=== PATIENT | female | born 1965 | race Caucasian/White ===

== ENCOUNTER 2017-03-02 17:35 | Emergency (ER) | payer OTHER ==
[~2017-03-02] VITALS: Ht 165.1 cm; Wt 77.1 kg
[2017-03-02] MEDS ORDERED: EZET1TAB PO (17:51)
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
--- NOTE | 2017-03-02 20:48 | RADIOLOGY IMAGING REPORT ---
FACILITY: [facility] [place] PATIENT NAME: Leila Gabriel : 1965 MR: [id number] V: [id number] EXAM DATE: ORDERING PHYSICIAN: PAULETTE GOMEZ TECHNOLOGIST: Location: [facility] [place] Patient: Leila Gabriel : 1965 Visit/Account:[id number] Date of Sevice: 03/02/2017 THYROID HISTORY: Thyroid nodule seen on CT scan. COMPARISON: Cervical spine CT dated 03/02/2017. FINDINGS: SIZE: Normal. Right lobe: 4.4 x 1.5 x 1.3 cm Left lobe: 6.3 x 1.5 x 1.3 cm Isthmus: 3 mm Thyroid heterogeneity: Homogeneous. NODULES: Right lobe: * No suspicious nodules. Left lobe: * 3.2 x 3.3 x 3.2 cm heterogeneously hypoechoic and hyperechoic and slightly vascular nodule extendi ng inferiorly from the left thyroid lobe. Isthmus: * None discrete. VASCULARITY: Within normal limits. ADDITIONAL FINDINGS: None. IMPRESSION: 3.2 x 3.3 x 3.2 cm left inferior thyroid nodule. Biopsy is recommended. REFERENCE: 2015 [place] [employer] Management Guidelines for Adult Patients with Thyroid Nodules and D ifferentiated Thyroid Cancer: The [place] [employer] Guidelines Task Force on Thyroid Nodul es and Differentiated Thyroid Cancer. SONOGRAPHIC PATTERNS: * Benign: Purely cystic nodules (no solid component); estimated risk of malignancy <1 percent; no bi opsy recommended. * Very Low Suspicion: Spongiform or partially cystic nodules without any of the sonographic features described in low, intermediate, or high suspicion patterns; estimated risk of malignancy <3 percent; consider FNA at > 2 cm (Observation without FNA is also a reasonable option). * Low Suspicion: Isoechoic or hyperechoic solid nodule, or partially cystic nodule with eccentric so lid areas, without microcalcification, irregular margin or ETE (extra-thyroidal extension), or taller than wide shape; estimated risk of malignancy 5-10 percent; recommend FNA at >1.5 cm. * Intermediate Suspicion: Hypoechoic solid nodule with smooth margins without microcalcifications, E TE (extra-thyroidal extension), or taller than wide shape; estimated risk of malignancy 10-20 percent ; recommend FNA at > 1 cm. * High Suspicion: Solid hypoechoic nodule or solid hypoechoic component of a partially cystic nodule with one or more of the following features: irregular margins (infiltrative, microlobulated), microc alcifications, taller than wide shape, rim calcifications with small extrusive soft tissue component, evidence of ETE (extra-thyroidal extension); estimated risk of malignancy >70-90 percent; recommend FNA at > 1 cm. NOTES: * Although a sonographically suspicious subcentimeter thyroid nodule without evidence of extrathyroi clary extension or sonographically suspicious lymph nodes may be observed with close sonographic follow -up rather than pursuing immediate FNA, patient age and preference may modify decision-making. * A > 50% interval increase in nodule volume and/or development of new suspicious sonographic featur es are felt to be a valid reasons for potential re-aspiration of a nodule previously shown to have be nign FNA cytology. Report Dictated By: Juan Fam MD at 03/02/2017 8:39 PM Report E-Signed By: Juan Fam MD at 03/02/2017 8:43 PM WSN:[id number]
[2017-03-02 21:30] VITALS: BP 130/86
[2017-03-02 21:54] LABS: INR 0.94
== END 2017-03-02 21:38 | disposition home or self-care (01) ==
LOC: ER 17:57
DX: S16.1XXA Strain of muscle, fascia and tendon at neck level, initial encounter (principal); E04.1 Nontoxic single thyroid nodule; V49.60XA Unspecified car occupant injured in collision with unspecified motor vehicles in traffic accident, initial encounter
CPT/HCPCS: 72125; 76536; 85610; 85730; 99283

== ENCOUNTER → 2017-03-03 | Outpatient (CLI) | payer OTHER ==
[~2017-03-03] MED LIST: EZET1TAB PO
--- NOTE | 2017-03-03 14:36 | RADIOLOGY IMAGING REPORT ---
FACILITY: [facility] PATIENT NAME: Leila Gabriel : 1965 MR: [id number] V: [id number] EXAM DATE: ORDERING PHYSICIAN: PAULETTE GOMEZ TECHNOLOGIST: Location: [facility] [place] Patient: Leila Gabriel : 1965 Visit/Account:[id number] Date of Sevice: 03/03/2017 Exam type: THYROID BIOPSY FINE NEEDLE ASP History: Thyroid nodule Comparison: Thyroid ultrasound March 02, 2017. Findings: Informed consent was obtained. The left-sided patient's neck was prepped and draped in usual sterile fashion. Local anesthesia was accomplished 1% lidocaine. Under sonographic guidance three 25-gauge FNA biopsies were obtained through the complex left thyroid mass. The samples were given to the [facility] hology technologist for processing. The procedure was accomplished without apparent complication. IMPRESSION: 1. Successful sonographically guided FNA biopsy of the complex left thyroid mass Report Dictated By: Grace Westbrook MD at 03/03/2017 2:30 PM Report E-Signed By: Grace Westbrook MD at 03/03/2017 2:31 PM WSN:[email or web address]
== END ==
LOC: US 09:06
PROVIDERS: ATTEND Nurse Practitioner Family
DX: E04.1 Nontoxic single thyroid nodule (principal)
CPT/HCPCS: 10022; 76942; 88104; 88172

== ENCOUNTER → 2017-03-15 | Outpatient (CLI) | payer OTHER ==
--- NOTE | 2017-03-17 11:41 | RADIOLOGY IMAGING REPORT ---
FACILITY: [facility] - [place] PATIENT NAME: JERI MERIDA : [id number] MR: [id number] V: [id number] EXAM DATE: ORDERING PHYSICIAN: SAIDA SUE TECHNOLOGIST: Deja Castañeda PROCEDURE:BILATERAL DIGITAL SCREENING MAMMOGRAM WITH CAD ASSISTED INTERPRETATION & 3D BREAST TOMOSYNTHYSIS COMPARISON:Prior mammograms 03/14/16, 03/13/15, 03/18/14, 03/11/13, 05/18/12, 05/07/12. INDICATIONS:SCREENING FINDINGS: Moderately dense fibroglandular tissue is seen throughout the breasts. The parenchymal pattern has remained stable when allowing for difference in mammographic technique & patient positioning. DIAGNOSTIC CATEGORY 1--NEGATIVE. RECOMMENDATIONS: ROUTINE MAMMOGRAM AND CLINICAL EVALUATION. IMPRESSION: BIRADS 1: Negative 1. No significant abnormality is seen Dictated by: Grace Westbrook M.D. on 03/15/2017 at 16:27 Transcribed by: SATINDER on 03/16/2017 at 14:33 Approved by: Grace Westbrook M.D. on 03/17/2017 at 11:40 [facility]
== END ==
LOC: MAMO 00:44
PROVIDERS: ATTEND Nurse Practitioner Family
DX: Z12.31 Encounter for screening mammogram for malignant neoplasm of breast (principal)
CPT/HCPCS: 77063; 77067

== ENCOUNTER 2017-08-03 00:14 | Day surgery (SDC) | payer OTHER ==
[~2017-08-03] VITALS: Ht 165.1 cm; Wt 73.9 kg
[2017-08-03] VITALS (7 sets, daily range): BP systolic 104–144; BP diastolic 66–98
[~2017-08-03 00:14] MED LIST changes: +ALBU8.5H IH; +ESTR1PAT4 TD; +EZET1TAB81 PO
--- NOTE | 2017-08-03 06:53 | Post Operative Progress Note ---
Post Operative Progress Note Date: Aug 03, 2017 Time: 08:58 Surgeon: joanie Anesthesia: dr baca Pre-Op Diagnosis: screening colonoscopy Post-Op Diagnosis: normal colonoscopy Procedure(s): colonoscopy OFELIA SOSA MD Aug 03, 2017 06:53
--- NOTE | 2017-08-03 06:53 | Short(Outpt) Discharge Summary ---
Discharge Summary Reason for Hosp/Final Diag: (1) Encounter for screening colonoscopy Hospital Course & Plan: normal colonoscopy Departure Discharge to: Home Discharge Instructions Home Meds Reported Medications Albuterol Sulfate 90 Mcg/Act (PROAIR HFA 90 MCG/ACT) 8.5 Gm Hfa.aer.ad, 2 PUFF IH Q4-6H Y for PRN, INHALER 07/28/17 Ezetimibe/Simvastatin (VYTORIN 10-20 MG TABLET) 1 Each Tablet, 1 EACH PO QDAY 07/28/17 Estradiol (ESTRADIOL 0.1 MG) 1 Each Patch.tdwk, 1 EACH TD 2XW, PATCH.WK 07/28/17 Discontinued Reported Medications Ezetimibe/Simvastatin (VYTORIN 10-10 MG TABLET) 1 Each Tablet, 1 EACH PO QDAY 03/02/17 Diet: Regular Activity: As Tolerated OFELIA SOSA MD Aug 03, 2017 06:53
[2017-08-03] MEDS ORDERED: NORMOSOL R SOLN(*) 1000 ML BAG 1,000 ML IV PRN (07:55)
[2017-08-03] MEDS ORDERED: LIDOCAINE/SOD BICARB 8.4% SYR ID ONE (07:55)
--- NOTE | 2017-08-03 10:03 | OPERATIVE REPORT 1 ---
EVENT DATE: 08/03/17 SURGEON: Jack Guzman M.D. ANESTHESIOLOGIST: ANESTHESIA: Sedation PREOPERATIVE DIAGNOSIS 1. Screening colonoscopy. POSTOPERATIVE DIAGNOSIS 1. Normal appearing colonoscopic examination. PROCEDURE PERFORMED 1. Colonoscopy. DESCRIPTION OF PROCEDURE: The patient was placed in the left lateral decubitus position, given intravenous anesthetic. Rectal exam was unremarkable. She did have prolapsing internal hemorrhoids but no palpable masses. Flexible colonoscope was inserted and advanced to the cecum. She had an excellent bowel prep. The ileocecal valve, base of the cecum, appendiceal orifice identified. The scope was slowly withdrawn. No mucosal abnormalities were noted in the cecum , right colon, transverse, descending, or sigmoid colon. The rectum was normal. The scope was retroflexed and that appeared to be normal. [facility]
== END 2017-08-03 09:55 | disposition home or self-care (01) ==
LOC: OR 00:14
PROVIDERS: ATTEND Surgery
DX: Z12.11 Encounter for screening for malignant neoplasm of colon (principal)

== ENCOUNTER → 2017-10-09 | Outpatient (CLI) | payer OTHER ==
--- NOTE | 2017-10-09 17:09 | RADIOLOGY IMAGING REPORT ---
FACILITY: [facility] - [place] PATIENT NAME: Leila Gabriel : 1965 MR: [id number] V: [id number] EXAM DATE: ORDERING PHYSICIAN: SAIDA SUE TECHNOLOGIST: Location: [facility] Patient: Leila Gabriel : 1965 Visit/Account:[id number] Date of Sevice: 10/09/2017 Exam type: SKULL < 4 VIEWS History: Indentation on top of skull Comparison: None. Findings: There is no plain radiograph evidence of lytic or blastic bone lesion involving the calvarium. The p aranasal sinuses appear well aerated. No evidence of skull fracture. IMPRESSION: 1. Unremarkable skull series. If patient's symptoms remain of strong clinical concern a CT may be h elpful for further evaluation Report Dictated By: Grace Westbrook MD at 10/09/2017 5:04 PM Report E-Signed By: Grace Westbrook MD at 10/09/2017 5:06 PM WSN:[email or web address]
== END ==
LOC: RAD 14:30
PROVIDERS: ATTEND Nurse Practitioner Family
DX: M95.2 Other acquired deformity of head (principal)
CPT/HCPCS: 70250

== ENCOUNTER → 2017-10-25 | Outpatient (CLI) | payer OTHER ==
--- NOTE | 2017-10-25 16:44 | RADIOLOGY IMAGING REPORT ---
FACILITY: [facility] PATIENT NAME: Leila Gabriel : 1965 MR: [id number] V: [id number] EXAM DATE: ORDERING PHYSICIAN: SAIDA SUE TECHNOLOGIST: Location: [facility] [place] Patient: Leila Gabriel : 1965 Visit/Account:[id number] Date of Sevice: 10/25/2017 HEAD W/O CONTRAST HISTORY: Bony abnormality on the vertex of the skull. COMPARISON STUDIES: Skull series October 09, 2017. TECHNIQUE: Contiguous axial images were obtained from the skull base to the vertex. One of the following dose optimization techniques was utilized in the performance of this exam: Autom ated exposure control; adjustment of the mA and/or kV according to the patient's size; or use of an i terative reconstruction technique. Specific details can be referenced in the facility's radiology C T exam operational policy. FINDINGS: Hemorrhage: There is no intraparenchymal or extra-axial mass or bleed. Ventricles / sulci / fissures: The ventricles and sulci are normal in terms of size and configuration . Masses / midline shift: Negative White matter and dockery matter: White matter is unremarkable. Extra-axial spaces: Negative Bones/skull base: The skull base is unremarkable. There is no abnormality involving the vertex of th e skull. The skull is unremarkable. No masses are seen. Visualized mastoid air cells / paranasal sinuses: Normal so far as visualized. Scalp and soft tissues: Negative. IMPRESSION: Normal non-contrast head CT without findings of a mass, bleed, or site of acute infarction. No findi ngs of an abnormality involving the vertex of the skull. Report Dictated By: Daniel Carter MD at 10/25/2017 4:34 PM Report E-Signed By: Daniel Carter MD at 10/25/2017 4:38 PM WSN:[email or web address]
== END ==
LOC: CT 10-12 00:59
PROVIDERS: ATTEND Nurse Practitioner Family
DX: R93.0 Abnormal findings on diagnostic imaging of skull and head, not elsewhere classified (principal)
CPT/HCPCS: 70450

== ENCOUNTER 2018-02-19 00:43 | Observation (INO) | payer OTHER ==
[2018-02-19] VITALS (12 sets, daily range): BP systolic 104–142; BP diastolic 57–94
[~2018-02-19] VITALS: Ht 165.1 cm; Wt 72.6 kg
[~2018-02-19 00:43] MED LIST changes: +ACET500T68 PO; +ASPI81TA94 PO; +BIOT5000 PO; +CHRM1TAB PO; +COCO1000 PO; +CYAN250013 PO; +DOCU240C67 PO; +IBUP100T51 PO; +MAGN1TAB2 PO; +METH500T6 PO; +MULT1CAP59 PO; +NIAC-1 PO; +OMEG10007 PO
[2018-02-19] MEDS ORDERED: NORMOSOL R SOLN(*) 1000 ML BAG 1,000 ML IV PRN ×2 (07:55→09:05)
[2018-02-19] MEDS ORDERED: ceFAZolin(*) 2GM/D5W 50ML 50 ML IVPB ONE (08:55)
[2018-02-19] MEDS ORDERED: FAMOTIDINE 20 MG TAB PO ONE (09:05)
[2018-02-19] MEDS ORDERED: LIDOCAINE/SOD BICARB 8.4% SYR ID ONE (09:05)
[2018-02-19] MEDS ORDERED: MIDAZOLAM 2 MG/2 ML VIAL IVP PRN (09:05)
[2018-02-19 09:20] LABS: PLATELET COUNT, AUTOMATED 225 K/uL (150-450)
--- NOTE | 2018-02-19 09:20 | EKG ---
FACILITY: [facility] PATIENT NAME: JERI MERIDA : [id number] MR: [id number] V: [id number] EXAM DATE: ORDERING PHYSICIAN: DORON ODELL TECHNOLOGIST: MAXIMILIANO Zamudio Reason : PRE-OP Blood Pressure : / mmHG Vent. Rate : 074 BPM Atrial Rate : 074 BPM P-R Int : 150 ms QRS Dur : 080 ms QT Int : 400 ms P-R-T Axes : 059 032 058 degrees QTc Int : 444 ms Normal sinus rhythm Normal ECG No previous ECGs available Confirmed by HARDEEP HERNANDES ([id number]) on 02/20/2018 6:38:25 AM Referred By: Confirmed By:HARDEEP HERNANDES
[2018-02-19] MEDS ORDERED: LIDO/EPI 1% MDV 1:100,000 20ML INFIL ONE (09:47)
[2018-02-19] MEDS ORDERED: PROPOFOL EMUL 10MG/ML 20 ML VL ONE (10:07)
[2018-02-19] MEDS ORDERED: DEXAMETHASONE SOD PHOS 10MG/ML ONE (10:07)
[2018-02-19] MEDS ORDERED: SUCCINYLCHOL CHL 100MG/5ML SYR IVP ONE (10:07)
[2018-02-19] MEDS ORDERED: ONDANSETRON 4 MG/2 ML VIAL ONE (10:07)
[2018-02-19] MEDS ORDERED: MORPHINE 2 MG/ML SYR IVP PRN (11:35)
[2018-02-19] MEDS ORDERED: LR(*) 1000 ML BAG 1,000 ML IV PRN (11:35)
[2018-02-19] MEDS ORDERED: ALBUTEROL 8 GM INHALER INH PRN (11:35)
[2018-02-19] MEDS ORDERED: ONDANSETRON 4 MG ODT TABDP SL PRN (11:35)
[2018-02-19] MEDS ORDERED: ACETAMINOPHEN 325 MG TAB PO PRN (11:35)
--- NOTE | 2018-02-19 11:35 | Post Operative Note ---
Operative Note - ENT Operative Day Date: Feb 19, 2018 Physicians Surgeon: Osiel Astronomy Department Chair: Rocio Anesthesia: GETA Diagnosis Pre-Op Diagnosis: uninodular goiter Post-Op Diagnosis: same Procedure Procedure(s): left thyroid lobectomy Specimen Removed:(Maybe N/A): left thyroid lobectomy Complications: none Fluids Estimated Blood Loss: 25 ml RYAN BEJARANO JR, MD Feb 19, 2018 11:35
[2018-02-19] MEDS ORDERED: fentaNYL CITR 100 MCG/2 ML AMP ONE (11:54)
[2018-02-19] MEDS: APAP/HYDROCODONE 325/5 TAB PO PRN ×3 (13:54→21:51)
--- NOTE | 2018-02-19 13:54 | OPERATIVE REPORT 1 ---
EVENT DATE: February 19, 2018 SURGEON: Neil Cartagena Jr., MD ANESTHESIOLOGIST: Rogerio Wilkes M.D. ANESTHESIA: General. BUNDLE SHAKER: Temi Chan, INDUSTRIAL RELATIONS COUNSELOR, [facility] PREOPERATIVE DIAGNOSIS Uninodular goiter. POSTOPERATIVE DIAGNOSIS Uninodular goiter. PROCEDURE PERFORMED Left thyroid lobectomy. INDICATIONS Please refer to the preoperative note. DESCRIPTION OF PROCEDURE The patient was positively identified in the preoperative area. She was accompanied by her . Risks were again explained including, but not limited to, bleeding, infection, injury of the recurrent laryngeal nerve, transient and permanent dysphonia, injury of the parathyroid nerve, transient and permanent hypocalcemia and those associated with anesthesia. She acknowledged understanding those risks. She was then brought back to the operating suite, placed supine on the operating table and anesthesia was administered. Once asleep, the patient was positioned and prepped and draped in the usual sterile fashion. A 5 cm incision was marked in a favorable neck crease overlying the thyroid gland. Approximately 2 cc of 1% lidocaine with epinephrine was infiltrated. The aforementioned incision was then made with #15 down to the underlying subcutaneous tissue and then dissected with Bovie electrocautery. The platysmal muscle was identified and divided with Bovie electrocautery. Subplatysmal flaps were elevated superiorly to the level of the thyroid notch and inferior level of the sternal notch. The strap musculature was divided along the median raphe and then carefully elevated the strap muscles off the thyroid lobe on the left. The superior pole was skeletonized and I came across the vessels with the Harmonic scalpel. I then carefully dissected the lobe from the surrounding connective tissue. The recurrent laryngeal nerve was identified. The nerve monitor was utilized during this case and inner probe confirmed the presence of the nerve. This was traced to its' entrance into the trachea. I then came across the inferior vessels with a Harmonic scalpel. Both superior and inferior parathyroid glands were felt to be identified and preserved in situ. I then medialized the lobe from the trachea and divided at Mathew's ligament. This was sent for frozen section. This was consistent with a benign mass. Therefore, total thyroidectomy was not presently indicated. The wound bed was then copiously irrigated with normal saline solution. A Valsalva maneuver was performed. Hemostasis was assumed. A small piece of Fibrillar Surgicel was placed in the wound bed. The strap muscles and the platysmal were reapproximated with interrupted Chromic suture. The skin was then closed in multi-layer fashion. The patient was then turned to anesthesia for emergency. ESTIMATED BLOOD LOSS 25 cc. COMPLICATIONS None. MTDD
[2018-02-19] MEDS: ceFAZolin(*) 1 GM VIAL 1 GM in NS(*) 0.9% 100 ML ADDVANT BAG 100 ML IVPB SCH (16:33)
[2018-02-20] MEDS: ceFAZolin(*) 1 GM VIAL 1 GM in NS(*) 0.9% 100 ML ADDVANT BAG 100 ML IVPB SCH ×2 (00:51→08:19)
[2018-02-20] MEDS: APAP/HYDROCODONE 325/5 TAB PO PRN ×3 (01:36→13:59)
[2018-02-20 04:39] VITALS: BP 119/71
[2018-02-20 07:10] VITALS: BP 107/57
--- NOTE | 2018-02-20 10:13 | Short(Outpt) Discharge Summary ---
Discharge Summary Reason for Hosp/Final Diag: (1) Uninodular goiter Status: Resolved Hospital Course & Plan: Patient underwent left thyroid lobectomy 02/01. Jeison reg diet. Pain controlled. Departure Discharge to: Home Discharge Instructions Home Meds Reported Medications Multivitamin (MULTIVITAMINS) 1 Each Capsule, 1 EACH PO DAILY, CAPSULE 02/07/18 Chrm/Cider/ Bt-Org Peel/Gr T (APPLE CIDER VINEGAR PLUS TB) 1 Each Tablet, 1 EACH PO BID 02/07/18 Coconut Oil (COCONUT OIL) 1,000 Mg Capsule, 1000 MG PO QDAY, CAPSULE 11/13/17 [place]-3/Dha/Epa/Fish Oil (Fish Oil 1,000 mg Softgel) 1,000 Mg (120 Mg-180 Mg) Capsule, 1 TAB PO QDAY 11/13/17 Biotin (Biotin) 5,000 Mcg Tab.rapdis, PO BID 11/13/17 Acetaminophen (TYLENOL EXTRA STRENGTH) Unknown Strength Tablet, 500 MG PO DAILY PRN for PAIN, TAB 11/13/17 Ibuprofen (ADVIL) Unknown Strength Tablet, PO Q6H 11/13/17 Docusate Calcium (DOCUSATE CALCIUM) Unknown Strength Capsule, 1 TAB PO QDAY, CAPSULE 11/13/17 Methylcellulose (FIBER) Unknown Strength Tablet, PO QDAY 11/13/17 Cyanocobalamin (Vitamin B-12) (Vitamin B12) Unknown Strength Tab.chew, 1 TAB PO QDAY 11/13/17 Aspirin (ASPIRIN) 81 Mg Tab.chew, 81 MG PO QODAY, TAB.CHEW 11/13/17 Niacinamide (Niacin) 500 Mg Tablet, 1 TAB PO QHS 11/13/17 Albuterol Sulfate 90 Mcg/Act (PROAIR HFA 90 MCG/ACT) 8.5 Gm Hfa.aer.ad, 2 PUFF IH Q4-6H PRN for PRN, INHALER 07/28/17 Ezetimibe/Simvastatin (VYTORIN 10-20 MG TABLET) 1 Each Tablet, 1 EACH PO QDAY 07/28/17 Estradiol (ESTRADIOL 0.1 MG) 1 Each Patch.tdwk, 1 EACH TD 2XW, PATCH.WK 07/28/17 Diet: Regular Activity: No Heavy Lifting, No Exertion Special Instructions: May shower. Do not soak steri strips. No lifting over 15 lbs. Has scheduled follow up appt next week. RYAN BEJARANO JR, MD Feb 20, 2018 10:13
[2018-02-20] MEDS ORDERED: HYDR-385 PO (10:52)
== END 2018-02-20 14:45 | disposition home or self-care (01) ==
LOC: OR 00:43 → MED 12:50
PROVIDERS: ADMIT Otolaryngology; ATTEND Otolaryngology
DX: E04.1 Nontoxic single thyroid nodule (principal); J45.909 Unspecified asthma, uncomplicated; E78.5 Hyperlipidemia, unspecified
CPT/HCPCS: 36415; 60220; 85025; 88307; 88331; 93005; G0378; J0330; J0690; J1100; J2405; J2704; J3010; J7050; J7120; S0119

== ENCOUNTER → 2018-03-22 | Outpatient (CLI) | payer OTHER ==
[~2018-03-22] MED LIST changes: +HYDR-385 PO
--- NOTE | 2018-03-23 08:48 | RADIOLOGY IMAGING REPORT ---
FAC[place] [facility] [place] NAME: JERI MERIDA : [id number] MR: [id number] V: [id number] EXAM DATE: ORDERING PHYSICIAN: SAIDA SUE TECHNOLOGIST: Deja Castañeda PROCEDURE:BILATERAL DIGITAL SCREENING MAMMOGRAM WITH CAD ASSISTED INTERPRETATION & 3D TOMOSYNTHESIS COMPARISON:Prior mammograms 03/15/17, 03/14/16, 03/13/15, 03/18/14, 03/11/13, 05/18/12. INDICATIONS:screening FINDINGS: The breasts are heterogeneously dense which can obscure small masses. The parenchymal pattern has remained stable allowing for difference in mammographic technique & patient positioning. DIAGNOSTIC CATEGORY 1--NEGATIVE. RECOMMENDATIONS: ROUTINE MAMMOGRAM AND CLINICAL EVALUATION. IMPRESSION: BIRADS 1: Negative. No significant abnormality is seen. Dictated by: Grace Westbrook M.D. on 03/22/2018 at 16:41 Transcribed by: SATINDER on 03/23/2018 at 8:24 Approved by: Grace Westbrook M.D. on 03/23/2018 at 8:47 [facility]
== END ==
LOC: MAMO 00:31
PROVIDERS: ATTEND Nurse Practitioner Family
DX: Z12.31 Encounter for screening mammogram for malignant neoplasm of breast (principal)
CPT/HCPCS: 77063; 77067